=== PATIENT | female | born 1955 | race Caucasian/White ===

== ENCOUNTER 2022-10-13 09:49 | Day surgery (SDC) | payer OTHER ==
[2022-10-13 10:57] LABS: GLUCOMETER DEV NAME(LOC) SDS.
[2022-10-13] MEDS ORDERED: AMLO-258 PO (11:00)
[2022-10-13] MEDS ORDERED: SODIUM CHLORIDE 0.9% 1,000 ML IV ONE (11:00)
[2022-10-13] MEDS ORDERED: LISI-894 PO (11:00)
[2022-10-13] MEDS ORDERED: HYDR50TA36 PO (11:00)
[2022-10-13] MEDS ORDERED: ASPI-1450 PO (11:00)
[2022-10-13] MEDS ORDERED: TICA60TA PO (11:00)
[2022-10-13] MEDS ORDERED: METF-1211 PO (11:00)
[2022-10-13] MEDS ORDERED: GLIP5TAB12 PO (11:00)
[2022-10-13] MEDS ORDERED: OXYGEN THERAPY IH SCH (11:30)
== END 2022-10-13 13:40 | disposition home or self-care (01) ==
LOC: SURGERY 09:49
PROVIDERS: ATTEND Specialist
DX: D12.5 Benign neoplasm of sigmoid colon (principal); K64.8 Other hemorrhoids; I10 Essential (primary) hypertension; Z91.040 Latex allergy status; D50.9 Iron deficiency anemia, unspecified; Z86.73 Personal history of transient ischemic attack (TIA), and cerebral infarction without residual deficits; Z79.899 Other long term (current) drug therapy
CPT/HCPCS: 45385; 88305; 82962; C1769